=== PATIENT | male | born 1965 | race African-American/Black ===

== ENCOUNTER 2025-01-04 11:56 | Outpatient (CLI) | payer OTHER | END 2025-01-04 23:59 | disposition home or self-care (01) | LOC: WOU 11:56 | PROVIDERS: ATTEND Student in an Organized Health Care Education/Training Program | DX: T85.79XD Infection and inflammatory reaction due to other internal prosthetic devices, implants and grafts, subsequent encounter (principal); Y81.8 Miscellaneous general- and plastic-surgery devices associated with adverse incidents, not elsewhere classified; Z83.3 Family history of diabetes mellitus; Z82.49 Family history of ischemic heart disease and other diseases of the circulatory system | CPT/HCPCS: G0463 ==

== ENCOUNTER 2025-04-01 10:02 | Outpatient (CLI) | payer MEDICAID, OTHER | END 2025-04-01 23:59 | disposition home or self-care (01) | LOC: WOU 10:02 | PROVIDERS: ATTEND Student in an Organized Health Care Education/Training Program | DX: T85.79XD Infection and inflammatory reaction due to other internal prosthetic devices, implants and grafts, subsequent encounter (principal); Z96.89 Presence of other specified functional implants | CPT/HCPCS: G0463 ==